=== PATIENT | male | born 1995 | race Two or more races ===

== ENCOUNTER 2024-06-25 12:04 | Emergency (ER) | payer MEDICAID ==
[~2024-06-25] VITALS: Ht 170.2 cm; Wt 80.9 kg
[2024-06-25 12:23] VITALS: BP 117/57; PULSE 89; RESP 17; TEMP 97.6; O2SAT 96
[2024-06-25] MEDS: ACETAMINOPHEN 325 MG TABLET PO ONE (14:02)
[2024-06-25] MEDS ORDERED: IBUP-1492 PO (15:00)
== END 2024-06-25 15:47 | disposition home or self-care (01) ==
LOC: EMS 12:07
DX: S93.401A Sprain of unspecified ligament of right ankle, initial encounter (principal); X50.1XXA Overexertion from prolonged static or awkward postures, initial encounter; Y93.51 Activity, roller skating (inline) and skateboarding; Y92.89 Other specified places as the place of occurrence of the external cause; Y99.8 Other external cause status
CPT/HCPCS: 99284; 73610-TC; 73630-TC; Z7502; Z7610